=== PATIENT | male | born 1965 | race African-American/Black ===

== ENCOUNTER 2024-07-11 13:01 | Inpatient (IN) | payer MEDICAID ==
[~2024-07-11] VITALS: Ht 188 cm; Wt 116.8 kg
[2024-07-11 15:36] LABS: BASOPHILS % (AUTO) 0.5 % (0.0-2.0); EOSINOPHILS % (AUTO) 0.5 % (1.0-6.0); HEMATOCRIT 40.1 % (41-53); HEMOGLOBIN 12.9 g/dL (13.5-17.5); LYMPHOCYTES # (AUTO) 1.6 K/uL (1.0-4.8); LYMPHOCYTES % (AUTO) 16.1 % (22.0-44.0); MEAN CORPUSCULAR HEMOGLOBIN 32.6 pg (26.0-34.0); MEAN CORPUSCULAR HGB CONC 32.1 G/dL (31.0-37.0); MEAN CORPUSCULAR VOLUME 102 fL (80-100); MONOCYTES % (AUTO) 9.5 % (2.0-9.0); NEUTROPHILS # (AUTO) 7.4 K/uL (1.8-7.7); NEUTROPHILS % (AUTO) 73.4 % (40.0-70.0); PLATELET COUNT (AUTO) 254 K/uL (150-450); RED BLOOD CELL COUNT(AUTO) 3.94 MIL/uL (4.50-5.90); RED CELL DISTRIBUTION WIDTH 14.2 % (11.5-14.5)
[2024-07-11 15:58] LABS: COVID AG,FIA SOURCE NASAL SWAB
[2024-07-11 16:08] LABS: ALCOHOL, BLOOD (SERUM) < 3 mg/dL (0-10)
[2024-07-11 16:18] LABS: SARS-COV2 (COVID) ANTIGEN,FIA Negative (Negative)
[2024-07-11 16:18] LABS: ANION GAP 12 mmol/L (8-16); CALCIUM, TOTAL 9.4 mg/dL (8.8-10.5); CARBON DIOXIDE 27 mmol/L (22-29); CHLORIDE 107 mmol/L (98-107); CREATININE 0.83 mg/dL (0.60-1.30); GLOMERULAR FILTR. RATE CALC > 60 mL/min (>60); GLUCOSE,RANDOM 92 mg/dL (70-110); POTASSIUM 4.5 mmol/L (3.5-5.1); SODIUM SERUM 146 mmol/L (136-145); UREA NITROGEN, BLOOD 19 mg/dL (7-18)
[2024-07-11 18:31] LABS: PH,URINE DRUG SCREEN 5.5 (5.0-8.0)
[2024-07-11 18:37] LABS: ALCOHOL, URINE DRUG SCREEN NEGATIVE (NEGATIVE); AMPHET/METH SCREEN,URINE POSITIVE (NEGATIVE); BARBITURATE SCREEN, URINE NEGATIVE (NEGATIVE); BENZODIAZEPINES SCREEN,URINE NEGATIVE (NEGATIVE); CANNABINOID SCREEN,URINE POSITIVE (NEGATIVE); COCAINE SCREEN,URINE NEGATIVE (NEGATIVE); METHADONE SCREEN, URINE NEGATIVE (NEGATIVE); OPIATE SCREEN,URINE NEGATIVE (NEGATIVE); PHENCYCLIDINE SCREEN,URINE NEGATIVE (NEGATIVE)
[2024-07-11] MEDS: HALOPERIDOL LACTATE 5 MG/ML VIAL IM ONE (21:42)
[2024-07-11] MEDS: LORazepam 2 MG/ML VIAL IM ONE (21:43)
[2024-07-11] MEDS: DiphenhydrAMINE HCL 50 MG/ML VIAL IM ONE (21:43)
[2024-07-12 00:59] VITALS: O2SAT 98
[2024-07-12] MEDS ORDERED: PNEUMOCOCCAL VACCINE POLYVALENT 0.5 ML SYRINGE [PPSV23] IM. ONE (03:00)
[2024-07-12 06:14] VITALS: RESP 18
[2024-07-12 08:00] VITALS: BP 132/97; PULSE 86; RESP 18; TEMP 97.8; O2SAT 100
[2024-07-12] MEDS: HALOPERIDOL 5 MG TABLET PO PRN (09:00)
[2024-07-12] MEDS: LORazepam 2 MG TABLET PO PRN (09:00)
[2024-07-12] MEDS ORDERED: ARIP15TA2 PO (16:22)
[2024-07-12] MEDS ORDERED: BUPR-514 PO (16:24)
[2024-07-12] MEDS ORDERED: BUPR450T5 PO (16:24)
[2024-07-12] MEDS ORDERED: TRAZ-186 PO (16:25)
[2024-07-12] MEDS ORDERED: GABA-1181 PO (16:25)
[2024-07-12] MEDS: GABAPENTIN 300 MG CAPSULE PO SCH (16:38)
[2024-07-12] MEDS: TraZODone HCL 100 MG TABLET PO SCH (20:50)
[2024-07-13] MEDS: BuPROPion HCL XL 150 MG ER TABLET PO SCH (08:20)
[2024-07-13] MEDS: ARIPiprazole 15 MG TABLET PO SCH (08:20)
[2024-07-13 08:56] VITALS: BP 128/95; PULSE 89; RESP 17; TEMP 97.7; O2SAT 95
[2024-07-13 20:00] VITALS: BP 137/77; PULSE 75; RESP 16; TEMP 97.7; O2SAT 98
[2024-07-13] MEDS: ZOLPIDEM TARTRATE 10 MG TABLET PO PRN (20:27)
[2024-07-14 08:37] VITALS: BP 147/98; PULSE 98; RESP 16; TEMP 98; O2SAT 97
[2024-07-14] MEDS ORDERED: GABA-1181 PO (09:16)
[2024-07-14] MEDS ORDERED: BUPR-514 PO (09:16)
[2024-07-14] MEDS ORDERED: ARIP15TA27 PO (09:16)
[2024-07-14] MEDS ORDERED: TRAZ-257 PO (09:16)
[2024-07-14 10:04] VITALS: BP 139/85; PULSE 98; RESP 16; TEMP 98; O2SAT 97
== END 2024-07-14 16:13 | disposition home or self-care (01) | DRG 750 ==
LOC: EMS 13:01 → B3A 07-12 00:11 → EDBD 07-12 00:11
PROVIDERS: ADMIT Psychiatry & Neurology Child & Adolescent Psychiatry; ATTEND Psychiatry & Neurology Child & Adolescent Psychiatry
PROC: GZ56ZZZ Individual Psychotherapy, Supportive (ICD-10-PCS; principal; 2024-07-12)
DX: F25.0 Schizoaffective disorder, bipolar type (principal); F12.10 Cannabis abuse, uncomplicated; Z20.822 Contact with and (suspected) exposure to COVID-19; F15.10 Other stimulant abuse, uncomplicated; Z79.899 Other long term (current) drug therapy
CPT/HCPCS: 80048; 80307; 85025; G0480; J1200; J1630; J2060